=== PATIENT | male | born 1955 | race Caucasian/White ===

== ENCOUNTER 2023-09-11 13:59 | Emergency (ER) | payer BC, SELFPAY ==
[2023-09-11 14:01] VITALS: BP 140/100
[2023-09-11 14:15] VITALS: BP 133/99; BMI 30.4
--- NOTE | 2023-09-11 14:46 | EDRN ---
Gege SINGER in room w/ pt at this time, performing a US at stretcher side.
--- NOTE | 2023-09-11 15:09 | ED.GENMED ---
History of Present Illness
<Hussain Magallon Jr., PA-C - Last Filed: 09/12/23 13:09>
General
Chief Complaint: Musculo-Skeletal Complaint
Source: patient and spouse
Exam Limitations: none
Time Seen by Provider: 09/11/23 14:27
Nursing documentation reviewed up to this point in time: agreed with
Travel History
Have you had any contact with someone who has COVID-19?: No
Do you have any symptoms of coronavirus? Fever > 100 degrees, chills, cough, shortness of breath, sore throat, loss of taste or smell, muscle aches, or headache?: No
History of Present Illness
History of Present Illness:
68-year-old male presenting to the emergency department today with concerns of left-sided heel discomfort over the past 4 days has had some chronic discomfort of the past few weeks but worsening over the past 4 days denies specific emergent
symptoms. Denies any chest pain shortness of breath does have swelling to the foot and ankle but denies swelling more proximally. Difficulty with ambulation secondary to pain.
Past History
<Hussain Magallon Jr., PA-C - Last Filed: 09/12/23 13:09>
Past History
ED Past Medical History: GERD, HTN and Hypothyroidism
ED Past Surgical History: Orthopedic
Review of Systems
<Hussain Magallon Jr., PA-C - Last Filed: 09/12/23 13:09>
Review of Systems
Allergies reviewed?: Yes
All Other Systems: ROS reviewed and negative except as documented in HPI and ROS
Phy Exam
<CORINNA Paz Jr. Last Filed: 09/12/23 13:09>
Physical Exam
Physical Exam:
GENERAL: Alert , in no apparent distress
EYE: pupils equal and reactive
NECK: Supple, no significant adenopathy.
ENT: o/p clr, mmm.
CARDIAC: Regular rate and rhythm .
LUNGS: Clear breath sounds bilaterally, no acute respiratory distress, no wheezes/rales/rhonchi
ABDOMEN: Soft, without focal tenderness, no r/g, no cvat
NEUROLOGICAL: Alert and oriented, no focal neuro deficits
SKIN: Warm and dry, skin intact.
MUSCULOSKELETAL: Tenderness and swelling posterior aspect of the calcaneus at the insertion of the Achilles tendon increased discomfort with movement and dorsiflexion of the ankle. Achilles intact with negative Lorenzana squeeze test, well perfused.
PSYCH: Normal and appropriate interaction.
Course
<Hussain Magallon Jr., PA-C - Last Filed: 09/12/23 13:09>
Orders/Labs/Results
Orders:
Orders
09/11/23 14:38
Venous Doppler Lwr Ext Left [US Periph Venous LOWER Ext LT] Urgent
Comment:
Reason For Exam: dvt r/o
09/11/23 15:28
Crutches-Treatment ONCE
Vital Signs
Initial and Last Documented VS:
Initial Vital Signs
Temp Pulse Resp BP Pulse Ox
97.8 F 77 16 140/100 96
09/11/23 14:01 09/11/23 14:01 09/11/23 14:01 09/11/23 14:01 09/11/23 14:01
Last Documented Vital Signs
Temp Pulse Resp BP Pulse Ox
97.8 F 69 16 138/93 94
09/11/23 14:01 09/11/23 16:48 09/11/23 16:48 09/11/23 16:48 09/11/23 16:48
<Alexander Foy PA-C - Last Filed: 09/11/23 17:06>
Orders/Labs/Results
Orders:
Orders
09/11/23 14:38
Venous Doppler Lwr Ext Left [US Periph Venous LOWER Ext LT] Urgent
Comment:
Reason For Exam: dvt r/o
09/11/23 15:28
Crutches-Treatment ONCE
Vital Signs
Initial and Last Documented VS:
Initial Vital Signs
Temp Pulse Resp BP Pulse Ox
97.8 F 77 16 140/100 96
09/11/23 14:01 09/11/23 14:01 09/11/23 14:01 09/11/23 14:01 09/11/23 14:01
Last Documented Vital Signs
Temp Pulse Resp BP Pulse Ox
97.8 F 69 16 138/93 94
09/11/23 14:01 09/11/23 16:48 09/11/23 16:48 09/11/23 16:48 09/11/23 16:48
<Hussain Magallon Jr., PA-C - Last Filed: 09/12/23 13:09>
MDM/Problems Addressed
MDM/Problems Addressed:
68-year-old male presenting to the emergency department today with concerns of discomfort to the posterior aspect of the left heel. Pain made worse significantly with ambulation. Previously evaluated by a packing and wrapping supervisor who ordered an MRI had the MRI
2 days ago the results have yet to crossover. He denies any previous blood clots recent trauma surgery immobilization. Swelling does creep past the ankle into the lower leg concerning this plan for ultrasound rule out DVT otherwise symptoms seem
most consistent with Achilles tendinitis plan for symptomatic and close follow-up.
<Hussain Magallon Jr., PA-C - Last Filed: 09/12/23 13:09>
*Critical Care Note
Total Time (30-74mins, 75-104mins- exclusive of procedures): Not Applicable
<Alexander Foy PA-C - Last Filed: 09/11/23 17:06>
Update Note
Update Note:
Received care of patient upon signout pending ultrasound of leg. Ultrasound of the leg was negative for DVT. Patient will be discharged with crutches and instructions to follow-up with orthopedics for likely Achilles tendinitis
ED Attending Note
<Hussain Magallon Jr., PA-C - Last Filed: 09/12/23 13:09>
-
Portions of this chart may have been created with voice recognition software.� Occasional wrong word or��sound alike� substitutions may have occurred due to the inherent limitations of voice recognition software.
Discharge Plan
Departure
Patient Disposition: Home (Routine Discharge)
Date of Disposition: 09/11/23
Time of Disposition: 17:06
Patient with high blood pressure during this ER visit?: No
Condition: Good
Covid-19: Not Applicable
Discharge Problem:
Achilles tendonitis
Instructions: Achilles Tendinopathy (DC), Achilles Tendinopathy Exercises
Prescriptions:
New
oxycodone-acetaminophen [Endocet] 5-325 mg tablet
1 tab PO Q6H PRN (Reason: Pain) Qty: 7 0RF
No Action
pregabalin 50 mg capsule
50 mg PO TID Qty: 90 0RF
Referrals:
Aurelio Tellez MD [Family Provider] -
Piyush Samuels DPM [Active] - Keep scheduled appt
Activity Restrictions/Additional Instructions:
You came to emergency department today with concerns of foot and ankle discomfort. Here this appears to be consistent with Achilles tendinitis. Your ultrasound was reassuring. Please rest ice compress and elevate until follow-up with podiatry for
further assessment. Return to the emergency department for any worsening, new or concerning symptoms.
Interventions
Interventions:
*Risk Screen - Suicide Last Done: 09/11/23 14:15
*General Assessment Last Done: 09/11/23 14:01
*Neglect/Abuse Screening Last Done: 09/11/23 14:15
ED- Fall Risk Assessment Last Done: 09/11/23 14:15
*ED COVID-19 Vaccine History Last Done: 09/11/23 14:01
*Nursing Disposition Last Done: 09/11/23 17:15
ED-Musculoskeletal Assessment Last Done: 09/11/23 14:15
Discharge Date and Time
Discharge Date/Time: 09/11/23 17:15
[2023-09-11 16:48] VITALS: BP 138/93
--- NOTE | 2023-09-11 17:07 | EDRN ---
Jennifer SINGER in room w/ pt. Pt is to be discharged at this time.
== END 2023-09-11 17:15 | disposition home or self-care (01) ==
LOC: EMR 13:59
PROVIDERS: EMERGENCY PHYSICIAN Emergency Medicine; FAMILY PHYSICIAN Internal Medicine
DX: M76.62 Achilles tendinitis, left leg (principal)
CPT/HCPCS: 99284; 93971